=== PATIENT | male | born 1960 | race Caucasian/White ===

== ENCOUNTER 2017-07-02 13:14 | Emergency (ER) | payer OTHER ==
[~2017-07-02] VITALS: Ht 175.3 cm; Wt 98.0 kg
[~2017-07-02 13:14] MED LIST: BENA40TA41 PO; GLIM1TAB2 PO; LOVA20TA69 PO; MAXIDE PO
[2017-07-02 13:19] VITALS: Ht 175.3 cm; Wt 98.0 kg
[2017-07-02] MEDS ORDERED: FLUT9.9S NASAL (14:14)
[2017-07-02] MEDS ORDERED: SODI126M NASAL (14:14)
--- NOTE | 2017-07-02 14:28 | ERD ---
ER Documentation Chief Complaint Date/Time DATE: 07/02/17 TIME: 14:22 Chief Complaint Complains of left ear pain x 3 days HPI 56-year-old male is complaining of decreased hearing and pain in his left ear 1 week. His had been putting peroxide solutions to his left ear. The pain has resolved after 3 days, but hearing has not returned. He now complaining of nasal congestion with slight cough, and sore throat for the last 3 days. He has a history of the ear tube in the right ear placed on 2013. History of hypertension, taking benazepril daily. Denies fever. Denies shortness of breath. Denies headache or change in vision ROS All systems reviewed and are negative except as per history of present illness. Medications Home Meds Active Scripts Fluticasone Propionate (Flonase Allergy Relief) 9.9 Ml [place].susp, 1 SPRAY NASAL DAILY, #1 BOTTLE TO EACH NOSTRIL Prov:RADHA GREEN. [employer] 07/02/17 Sodium Chloride (Saline Nasal Mist) 126 Ml Mist, 2 SPRAY NASAL Q2H Y for NASAL CONGESTION, #1 BOTTLE Prov:RADHA GREEN. [employer]GER 07/02/17 Reported Medications Triamterene-HCTZ* (Triamterene-HCTZ*) 1 Tab Tablet, 1 TAB PO DAILY 04/12/12 Glimepiride* (Glimepiride*) 1 Mg Tablet, 1 MG PO DAILY 04/12/12 Lovastatin* (Altoprev*) 20 Mg Tab.sr.24h, 20 MG PO DAILY 04/12/12 Benazepril Hcl* (Benazepril Hcl*) 40 Mg Tablet, 40 MG PO DAILY 04/12/12 Allergies Allergies: Coded Allergies: No Known Drug Allergy (Verified Allergy, Mild, 07/02/17) PMhx/Soc History of Surgery: No Anesthesia Reaction: No Hx Neurological Disorder: No Hx Respiratory Disorders: No Hx Cardiac Disorders: Yes (HTN ) Hx Psychiatric Problems: No Hx Miscellaneous Medical Probl: Yes (DM ) Hx Alcohol Use: Yes Hx Substance Use: No Hx Tobacco Use: Yes Smoking Status: Current every day smoker Physical Exam Vitals Vital Signs Date Time Temp Pulse Resp B/P Pulse Ox O2 Delivery O2 Flow Rate FiO2 07/02/17 13:19 98.3 103 20 190/105 98 Physical Exam General: Well-developed, well-nourished, conscious and coherent, in no distress Skin: Warm and dry without rash, good texture and turgor Head: Normocephalic without evidence of trauma Eyes: Sclera and conjunctivae normal; pupils equal, round, and reactive to light; extraocular movements are intact Ears: Canals are patent. Tympanic membranes are clear, left tympanic membrane bulging without erythema. Nose/Face: Erythematous and swollen with clear rhinorrhea Mouth/throat: Mucous membranes are moist. Posterior pharynx clear without erythema or exudates Neck: Supple without meningismus or adenopathy. Carotids are equal. Trachea midline. No bruits or JVD Chest: Normal AP diameter. Good expansion without retractions. Nontender. Lungs are clear to auscultate bilaterally with good tidal volume Heart: Regular rate and rhythm. No murmur, rub, or gallops heard Extremities: Full range of motion. Good strength bilaterally. No clubbing, cyanosis, or edema. Peripheral pulses are intact. Sensation intact Neuro: Alert and oriented 4, GCS 15. Cranial nerves grossly intact. Motor and sensory exams nonfocal. Moves all extremities. Speech clear. Gait normal Procedures/MDM Patient is afebrile, in no respiratory distress. Lungs are clear to auscultate. I doubt that patient has pneumonia or bronchitis. Likely patient's symptoms are result of viral upper respiratory infection. He does have bulging left tympanic membrane, likely secondary to nasal congestion. I doubt acute bacterial otitis media. I suggest the patient follow up with an ENT. Patient's blood pressure is elevated at 190/105. States that he smoked just prior to arrival. He has history of hypertension, is taking benazepril daily. Patient appears stable without evidence of hypertension emergency or urgency. The patient was counseled about the risks of hypertension and urged to pursue outpatient monitoring and therapy within a week with their primary care physician. Patient appears well, stable for discharge and outpatient management. Medical decision making shared with patient and family. Education provided to patient and family. Patient and family expressed understanding of the plan. Medications on discharge: Flonase, saline nasal spray. Follow-up: Primary care provider in 2-3 days or return to ED if worse. Disclaimer: Inadvertent spelling and grammatical errors are likely due to EHR/ dictation software use and do not reflect on the overall quality of patient care. Also, please note that the electronic time recorded on this note does not necessarily reflect the actual time of the patient encounter. Departure Diagnosis: Primary Impression: Congestion of left ear Additional Impressions: URI (upper respiratory infection) URI type: acute nasopharyngitis (common cold) Qualified Code: J00 - Acute nasopharyngitis BP (high blood pressure) Hypertension type: essential hypertension Qualified Code: I10 - Essential hypertension Condition: Stable Patient Instructions: Adult Self-Care for Colds, High Blood Pressure ( Hypertension) Referrals: [facility] YOU HAVE RECEIVED A MEDICAL SCREENING EXAM AND THE RESULTS INDICATE THAT YOU DO NOT HAVE A CONDITION THAT REQUIRES URGENT TREATMENT IN THE EMERGENCY DEPARTMENT. FURTHER EVALUATION AND TREATMENT OF YOUR CONDITION CAN WAIT UNTIL YOU ARE SEEN IN YOUR DOCTORS OFFICE WITHIN THE NEXT 1-2 DAYS. IT IS YOUR RESPONSIBILITY TO MAKE AN APPOINTMENT FOR FOLOW-UP CARE. IF YOU HAVE A PRIMARY DOCTOR --you should call your primary doctor and schedule an appointment IF YOU DO NOT HAVE A PRIMARY DOCTOR YOU CAN CALL OUR PHYSICIAN REFERRAL HOTLINE AT IF YOU CAN NOT AFFORD TO SEE A PHYSICIAN YOU CAN CHOSE FROM THE FOLLOWING [facility] [address] [address]. [facility] [address] [facility]. [facility] [address] [facility] [facility] [address] [facility]. [facility] [address] [facility]. [facility]. [address] [place] Additional Instructions: Call your primary care doctor TOMORROW for an appointment during the next 2-3 days.See the doctor sooner or return here if your condition worsens before your appointment time. Ask your primary provider for referral to an ENT. RADHA GREEN NP Jul 02, 2017 14:28
== END 2017-07-02 14:24 | disposition home or self-care (01) ==
LOC: FTE 13:14
DX: H92.02 Otalgia, left ear (principal); J00 Acute nasopharyngitis [common cold]; I10 Essential (primary) hypertension; E11.9 Type 2 diabetes mellitus without complications; F17.210 Nicotine dependence, cigarettes, uncomplicated; Z79.84 Long term (current) use of oral hypoglycemic drugs
CPT/HCPCS: 99283

== ENCOUNTER 2018-03-09 18:38 | Inpatient (IN) | END 2018-03-13 14:42 | disposition home or self-care (01) | DRG 640 ==